=== PATIENT | female | born 1990 | race Caucasian/White ===

== ENCOUNTER 2021-04-06 15:51 | Emergency (ER) | payer SELFPAY ==
[~2021-04-06 15:51] MED LIST: Magnevist 469MG/ML 20 ML VIAL ONE
[2021-04-06] MEDS ORDERED: Lorazepam 2 MG/ML VIAL ONE (16:47)
[2021-04-06 16:50] LABS: #Eosinphils 0.2 thou/uL (0.0-0.7); #Lymphocytes 1.9 thou/uL (1.20-3.40); #Monocytes 0.6 thou/uL (0.11-0.59); #Neutrophils 5.4 thou/uL (1.40-6.50); %Basophils 0.6 % (0.0-1.0); %Eosinophils 2.4 % (0.0-10.0); %Lymphocytes 23.1 % (21.0-51.0); %Monocytes 6.9 % (0.0-10.0); %Neutrophils 67.1 % (42.0-75.0); Hemoglobin 14.7 g/dL (12.0-16.0); Mean Corpuscular HGB CONC 35.7 g/dL (32.0-36.0); Mean Corpuscular Hemoglobin 32.1 pg (27.0-31.0); Mean Corpuscular Volume 89.9 fL (78.0-98.0); Mean Platelet Volume 7.3 fL (7.4-10.4); Platelet Count 266 thou/uL (130-400); RBC Distribution Width 12.5 % (11.5-14.5); White Blood Cell (WBC) Count 8.1 thou/uL (4.8-10.8)
[2021-04-06 17:13] LABS: ALT (SGPT) 20 U/L (8-55); AST (SGOT) 19 U/L (5-34); Albumin 4.5 g/dL (3.5-5.0); Alkaline Phosphatase 73 U/L (40-110); Anion Gap 14 mmol/L (10-20); BUN (Urea Nitrogen) 11 mg/dL (7.0-18.7); Bilirubin, Total 0.4 mg/dL (0.2-1.2); Calc. Creatinine Clearance 0 mL/min (70-130); Carbon Dioxide 24 mmol/L (22-29); Chloride 104 mmol/L (98-107); Glucose 96 mg/dL (70-105); Potassium 4.3 mmol/L (3.5-5.1); Protein, Total 7.5 g/dL (6.0-8.3); Sodium 138 mmol/L (136-145)
[2021-04-06 17:55] LABS: Tube # 2; Unspun CSF Color PINK (Colorless)
[2021-04-06 18:00] LABS: Color Of CSF Supernatant COLORLESS (Colorless)
[2021-04-06 18:12] LABS: CSF, Glucose 60 mg/dl (40-70); CSF, Protein 81 mg/dL (15-40)
[2021-04-06 18:20] LABS: CSF Source CSF; Clarity Cloudy/Turbid (Clear); Tube # 1; Tube # 4
[2021-04-06 18:45] LABS: Cell Count Non Hematic 8 %; Eosinophils 3 %; Lymphocytes 22 %; Segmented Neutrophils 67 %
[2021-04-06 18:48] LABS: Cell Count Non Hematic 5 %; Lymphocytes 36 %; Segmented Neutrophils 58 %
== END 2021-04-06 21:31 | disposition home or self-care (01) ==
LOC: ERS 15:51
DX: R53.1 Weakness (principal)
CPT/HCPCS: 71045; 72158; 80053; 82945; 84157; 85025; 85060; 85652; 86140; 87070; 87205; 89051; 96374; A9579; J2060